=== PATIENT | female | born 1940 | race Hispanic/Latino ===

== ENCOUNTER 2017-02-09 09:08 | Outpatient (CLI) | payer MEDICARE ==
--- NOTE | 2017-02-09 09:47 | XRay Report ---
CHEST TWO VIEWS: 02/09/17 09:08:00 CLINICAL: Cough. Acute bronchitis. COMPARISON: 08/25/15 FINDINGS: Normal heart and pulmonary vasculature. The lungs are normally expanded and clear.Aortic tortuosity. IMPRESSION: No acute cardiopulmonary process. No pneumonia.
== END 2017-02-09 09:09 | disposition home or self-care (01) ==
LOC: SPVIMAG 09:08
PROVIDERS: ATTEND Internal Medicine
DX: J20.9 Acute bronchitis, unspecified (principal)
CPT/HCPCS: 71020

== ENCOUNTER 2017-06-05 09:49 | Outpatient (CLI) | payer MEDICARE ==
--- NOTE | 2017-06-06 08:30 | Mammography Report ---
BILATERAL DIGITAL SCREENING MAMMOGRAM with CAD: 06/05/17 09:49:00 CLINICAL: Routine screening. COMPARISON:08/25/15 and 09/08/15 right mammogram FINDINGS: The breasts are mostly fatty with a few bilateral retroareolar fibroglandular densities.Stable right retroareolar duct ectasia. Bilateral benign calcifications. No mass, architectural distortion or suspicious calcifications. IMPRESSION: No mammographic evidence of malignancy. BI-RADS CATEGORY: 2 -- Benign RECOMMENDATION: Routine mammographic screening in one year. COMMENT: Patient follow-up letters are generated by our [employer] application.
== END 2017-06-05 09:50 | disposition home or self-care (01) ==
LOC: SPVWC 09:49
PROVIDERS: ATTEND Internal Medicine
DX: Z12.31 Encounter for screening mammogram for malignant neoplasm of breast (principal)
CPT/HCPCS: 77067; G0202

== ENCOUNTER 2019-05-29 10:29 | Outpatient (CLI) | payer MEDICARE ==
--- NOTE | 2019-05-29 11:40 | XRay Report ---
CHEST 2 VIEWS INDICATION / CLINICAL INFORMATION: COUGH. COMPARISON: Chest x-ray on 02/09/2017. FINDINGS: SUPPORT DEVICES: None. HEART / MEDIASTINUM: Normal heart size. Atherosclerosis in the thoracic aorta. LUNGS / PLEURA: No significant pulmonary or pleural abnormality. No pneumothorax. ADDITIONAL FINDINGS: No significant additional findings. IMPRESSION: 1. No acute findings. Signer Name: Doron Butterfield MD Signed: 05/29/2019 11:36 AM Workstation Name: [id number]
== END 2019-05-29 10:30 | disposition home or self-care (01) ==
LOC: SPVIMAG 10:29
PROVIDERS: ATTEND Internal Medicine
DX: R05 Cough (principal)
CPT/HCPCS: 71046